=== PATIENT | female | born 1995 | race Caucasian/White ===

== ENCOUNTER 2022-01-08 01:07 | Emergency (ER) | payer MEDICAID ==
[~2022-01-08] VITALS: Ht 165.1 cm; Wt 64.0 kg
[2022-01-08] MEDS ORDERED: IBUPROFEN 600MG TABLET PO STA (01:16)
[2022-01-08] MEDS ORDERED: IBUP-2029 MT (04:31)
[2022-01-08 05:06] VITALS: BP 118/82
== END 2022-01-08 05:08 | disposition home or self-care (01) ==
LOC: ER 01:17
DX: S20.219A Contusion of unspecified front wall of thorax, initial encounter (principal); M54.2 Cervicalgia; M79.672 Pain in left foot; V49.49XA Driver injured in collision with other motor vehicles in traffic accident, initial encounter; Y93.89 Activity, other specified; Y92.488 Other paved roadways as the place of occurrence of the external cause
CPT/HCPCS: 71045; 72040; 73630; 81025; 99284

== ENCOUNTER 2022-02-17 17:18 | Emergency (ER) | payer MEDICAID ==
[~2022-02-17] VITALS: Ht 165.1 cm; Wt 62.0 kg
[~2022-02-17 17:18] MED LIST: IBUP-2029 MT
[2022-02-17 17:32] VITALS: BP 132/76
== END 2022-02-17 18:28 | disposition left against medical advice (07) ==
LOC: ER 17:18
DX: R45.851 Suicidal ideations (principal); Z53.21 Procedure and treatment not carried out due to patient leaving prior to being seen by health care provider